=== PATIENT | female | born 1965 | race Caucasian/White ===

== ENCOUNTER 2022-01-08 18:28 | Outpatient (REF) | payer MEDICARE, MEDICAID, SELFPAY ==
--- NOTE | ~2022-01-08 | MR_ITS ---
MR LUMBAR SPINE WITHOUT CONTRAST CLINICAL INFORMATION: Intervertebral disc disorder with radiculopathy. COMPARISON: Lumbar spine MRI 10/21/2017. TECHNIQUE: MRI of the lumbar spine was obtained using routine sequences without contrast. FINDINGS: 5 nonrib-bearing lumbar-type vertebral bodies. Lumbar alignment is normal. Vertebral body heights are preserved. There is mild disc volume loss at L2-L3. Disc desiccation at all lumbar levels with exception of L1 on L2. There is no bone marrow edema. There are no acute fractures. Conus terminates at the T12-L1 level. There are no significant extraspinal soft tissue findings. L1-L2: Disc contour is normal. No central canal stenosis and no foraminal stenosis. L2-L3: There is a shallow central disc protrusion that mildly narrows the central canal, mildly increased in size. Background annular disc bulge and mild bilateral facet arthropathy. There is no foraminal stenosis. L3-L4: Small annular disc bulge and moderate bilateral hypertrophic facet arthropathy and ligamentum flavum thickening. No central canal stenosis. No foraminal stenosis. L4-L5: Diffuse annular disc bulge and moderate bilateral hypertrophic facet arthropathy. No central canal stenosis and no foraminal stenosis. L5-S1: Annular disc bulge exhibiting a dorsal annular fissure which is unchanged. No central canal stenosis. Mild bilateral foraminal encroachment unchanged. MR/MR lumbar spine wo con IMPRESSION: At L2-L3, there has been an increase in size of a shallow central disc protrusion that mildly narrows the central canal. Additional stable spondylitic changes throughout the lumbar spine as described. There is no severe central canal stenosis and there is no severe foraminal stenosis within the lumbar spine.
== END 2022-01-08 18:29 | disposition home or self-care (01) ==
LOC: HO.MRI 18:28
PROVIDERS: Visit Provider Physical Medicine & Rehabilitation
DX: M51.16 Intervertebral disc disorders with radiculopathy, lumbar region (principal)
CPT/HCPCS: 72148

== ENCOUNTER 2023-02-09 08:14 | Outpatient (REF) | payer MEDICARE, MEDICAID, SELFPAY ==
[2023-02-09 09:06] LABS: Estimated Average Glucose 108 mg/dL; Hemoglobin A1c % 5.4 % (<6.0)
[2023-02-09 09:40] LABS: Anion Gap 13 (12-20); Blood Urea Nitrogen 16 mg/dL (9-16); Calcium 9.9 mg/dL (8.4-10.2); Carbon Dioxide 25 mmol/L (22-29); Chloride 107 mmol/L (96-108); Cholesterol 213 mg/dL (<200); Estimated Glomerular Filt Rate > 60; Glucose Random 114 mg/dL (60-115); HDL Cholesterol 40 mg/dL (>40); LDL Cholesterol Calculated 143 mg/dL (<100); Sodium 140 mmol/L (135-145); Triglycerides 151 mg/dL (<150)
[2023-02-09 09:57] LABS: Rheumatoid Factor < 13.0 IU/mL (<15.0)
[2023-02-09 10:04] LABS: TSH reflex Free T4 3.09 uIU/mL (0.32-4.0)
[2023-02-09 10:16] LABS: Folate 15.5 ng/mL (> or = 4.0); Vitamin B12 1027 pg/mL (200-900)
[2023-02-14 13:04] LABS: Anti Nuclear Antibody Screen NEGATIVE (NEGATIVE)
== END 2023-02-09 08:15 | disposition home or self-care (01) ==
LOC: HO.LAB 08:14
PROVIDERS: PCP Registered Nurse; Visit Provider Registered Nurse
DX: G60.8 Other hereditary and idiopathic neuropathies (principal); I10 Essential (primary) hypertension; R73.01 Impaired fasting glucose
CPT/HCPCS: 36415; 80048; 80061; 82607; 82746; 83036; 84443; 86038; 86431

== ENCOUNTER 2023-05-20 14:43 | Outpatient (REF) | payer MEDICARE, MEDICAID, SELFPAY ==
[2023-05-23 22:23] LABS: Lyme Blot 7.78 index
[2023-05-25 10:32] LABS: Lyme Abs Screen POSITIVE
[2023-05-25 15:58] LABS: 18 KD (IgG) Band REACTIVE; 23 KD (IgG) Band REACTIVE; 23 KD (IgM) Band NON-REACTIVE; 28 KD (IgG) Band NON-REACTIVE; 30 KD (IgG) Band NON-REACTIVE; 39 KD (IgM) Band NON-REACTIVE; 39KD (IgG) Band REACTIVE; 41 KD (IgM) Band NON-REACTIVE; 41KD (IgG) Band REACTIVE; 45 KD (IgG) Band NON-REACTIVE; 58 KD (IgG) Band REACTIVE; 66 KD (IgG) Band NON-REACTIVE; 93 KD (IgG) Band NON-REACTIVE; Lyme IgG Blot Interp POSITIVE (NEGATIVE); Lyme IgM Blot Interp NEGATIVE (NEGATIVE)
== END 2023-05-20 14:44 | disposition home or self-care (01) ==
LOC: HO.LAB 14:43
PROVIDERS: PCP Registered Nurse; Visit Provider Family Medicine
DX: T14.8XXA Other injury of unspecified body region, initial encounter (principal); W57.XXXA Bitten or stung by nonvenomous insect and other nonvenomous arthropods, initial encounter; Y93.9 Activity, unspecified; Y92.9 Unspecified place or not applicable; Y99.9 Unspecified external cause status
CPT/HCPCS: 36415; 86617; 86618

== ENCOUNTER 2024-03-02 15:07 | Outpatient (REF) | payer MEDICARE, MEDICAID, SELFPAY ==
[2024-03-02 17:05] LABS: Alanine Aminotransferase 25 U/L (0-31); Albumin Level 4.4 g/dL (3.5-5.0); Alkaline Phosphatase 92 U/L (39-117); Anion Gap 12 (12-20); Aspartate Amino Transferase 22 U/L (5-31); Bilirubin Total 0.2 mg/dL (0.0-1.0); Blood Urea Nitrogen 16 mg/dL (9-16); Calcium 9.9 mg/dL (8.4-10.2); Carbon Dioxide 25 mmol/L (22-29); Chloride 106 mmol/L (96-108); Cholesterol 189 mg/dL (<200); Estimated Glomerular Filt Rate > 60; Glucose Random 105 mg/dL (60-115); HDL Cholesterol 51 mg/dL (>40); LDL Cholesterol Calculated 114 mg/dL (<100); Potassium 3.8 mmol/L (3.3-5.1); Sodium 139 mmol/L (135-145); Total Protein 7.8 g/dL (6.5-8.0); Triglycerides 122 mg/dL (<150)
[2024-03-02 17:16] LABS: Ferritin 121 ng/mL (10-250)
== END 2024-03-02 15:08 | disposition home or self-care (01) ==
LOC: HO.HHCL 15:07
PROVIDERS: Visit Provider Registered Nurse
DX: I10 Essential (primary) hypertension (principal); G60.8 Other hereditary and idiopathic neuropathies; E61.1 Iron deficiency
CPT/HCPCS: 36415; 80053; 80061; 82728